=== PATIENT | female | born 1965 | race American Indian/Alaskan Native ===

== ENCOUNTER 2022-03-07 11:28 | Outpatient (CLI) | payer OTHER ==
--- NOTE | 2022-03-07 12:25 | XRay Report ---
Cervical spine 4 views INDICATION: Neck pain IMPRESSION: The cervical spine is intact with slight discogenic degenerative changes C5-C6. Signer Name: Elmer Saucedo MD Signed: 03/07/2022 12:21 PM Workstation Name: [id number]
== END 2022-03-07 11:29 | disposition home or self-care (01) ==
LOC: XRAY 11:28
PROVIDERS: ATTEND Internal Medicine
DX: Z02.71 Encounter for disability determination (principal); M54.2 Cervicalgia
CPT/HCPCS: 72040